=== PATIENT | female | born 1930 | race Caucasian/White ===

== ENCOUNTER 2018-08-28 09:10 | Inpatient (IN) | payer OTHER, MEDICAID ==
[~2018-08-28] VITALS: Ht 154.9 cm; Wt 68.2 kg
[~2018-08-28 09:10] MED LIST: ALLO100T PO; AMLO10TA12; ASPI81TA10; CARV6.2551; COLE625T10; HCTZ25T; ISOS120T4; VALS1TAB59
[2018-08-28] MEDS ORDERED: SODIUM CHLORIDE 0.9% 1,000 ML IV ONE (09:31)
[2018-08-28 10:07] LABS: Basophils # (auto) 0 uL; Basophils % (auto) 0.3 % (0.0-2.0); Eosinophils # (auto) 0.2 uL; Eosinophils % (auto) 1.8 % (0.0-7.0); Hematocrit 41.7 % (36.0-46.0); Hemoglobin 13.7 g/dL (12.2-16.2); Lymphocytes # (auto) 1.5 uL; Lymphocytes % (auto) 16.5 % (10.0-50.0); Mean Corpuscular Hgb Conc. 32.8 g/dL (32.0-36.0); Mean Corpuscular Volume 94.6 fL (80.0-100.0); Monocytes # (auto) 0.6 uL; Monocytes % (auto) 6.5 % (0.0-12.0); Neutrophils % (auto) 74.9 % (37.0-80.0); Platelet Count (auto) 182 10^3/uL (140-450); Red Blood Cells 4.41 10^6/uL (4.0-5.20); Red Cell Distribution Width 13.6 % (11.8-14.3); White Blood Cell 9.3 10^3/uL (4.4-10.8)
[2018-08-28 10:40] LABS: Alanine Aminotransferase 17 U/L (13-56); Albumin 3.3 g/dL (3.4-5.0); Alkaline Phosphatase 75 U/L (45-117); Anion Gap 4 (5-15); Aspartate Aminotransferase 12 U/L (15-37); Bilirubin, Total 0.9 mg/dL (0.2-1.0); Blood Urea Nitrogen 23 mg/dL (7-18); Calcium 8.7 mg/dL (8.5-10.1); Carbon Dioxide 27 mmol/L (21-32); Chloride 109 mmol/L (98-107); GFR African American 48 mL/min; GFR Non-African American 40 mL/min; Glucose 136 mg/dL (74-106); Magnesium 2.6 mg/dL (1.6-2.6); Potassium 3.4 mmol/L (3.5-5.1); Sodium 140 mmol/L (136-145); Total Protein 6.1 g/dL (6.4-8.2)
[2018-08-28] MEDS ORDERED: NITROGLYCERIN 0.4 MG SL TAB SL PRN (11:00)
[2018-08-28] MEDS ORDERED: LABETALOL HCL 5 MG/ML ML 20ML VIAL IV PRN (11:00)
[2018-08-28] MEDS ORDERED: LORazepam 0.5 MG TAB PO PRN (11:00)
[2018-08-28] MEDS ORDERED: DEXTROSE (50%) 50ML SYRG IV PRN (11:00)
[2018-08-28] MEDS ORDERED: TEMAZEPAM 15 MG CAP PO PRN (11:00)
[2018-08-28] MEDS ORDERED: LACTULOSE 20Gm/30ML SOLN PO PRN (11:00)
[2018-08-28] MEDS ORDERED: MORPHINE SULFATE 4 MG/ML SYR/VIAL IV PRN (11:00)
[2018-08-28] MEDS ORDERED: ENOXAPARIN SOD 30 MG/0.3 ML SYRINGE SC SCH (11:07)
[2018-08-28] MEDS: SODIUM CHLORIDE 0.9% 1,000 ML IV SCH ×2 (11:55→22:54)
[2018-08-28] MEDS: ACCU-CHEK COMFORT CURVE STRIP VI SCH ×2 (12:08→17:45)
[2018-08-28] MEDS ORDERED: LORazepam 2MG/ML-1ML VIAL IV PRN (15:45)
[2018-08-28 17:00] VITALS: BP 140/60
[2018-08-28 22:00] VITALS: BP 158/66
[2018-08-28 23:52] LABS: Urine Amorphous Crystal FEW /hpf (None Seen); Urine Bacteria FEW /hpf (None Seen); Urine Blood Negative /uL (Negative); Urine Mucus FEW (None Seen); Urine Specific Gravity 1.034 (1.001-1.035); Urine WBC 4 /hpf (0 - 5)
[2018-08-29 00:06] LABS: Alcohol, Urine < 3.0 mg/dL (0-5); Amphetamine Screen, Urine NEGATIVE (NEGATIVE); Barbiturate Scree,Urine NEGATIVE (NEGATIVE); Benzodiazephine Screen, Urine NEGATIVE (NEGATIVE); Cannabinoid Screen, Urine NEGATIVE (NEGATIVE); Cocaine Screen, Urine NEGATIVE (NEGATIVE); Opiate Scree,Urine NEGATIVE (NEGATIVE); Phencyclidine Screen, Urine NEGATIVE (NEGATIVE)
[2018-08-29 05:00] VITALS: BP 178/73
[2018-08-29] MEDS: ACCU-CHEK COMFORT CURVE STRIP VI SCH ×3 (05:05→12:08)
[2018-08-29 05:51] LABS: Albumin 2.8 g/dL (3.4-5.0); BUN/Creatinine Ratio 30.9; Bilirubin, Total 0.5 mg/dL (0.2-1.0); Potassium 3.3 mmol/L (3.5-5.1); Total Protein 5.3 g/dL (6.4-8.2)
[2018-08-29 09:13] VITALS: BP 144/57
[2018-08-29] MEDS: PANTOPRAZOLE 40 MG TAB PO SCH ×4 (10:00→11:38)
[2018-08-29] MEDS: ASPirin 81 mg TAB PO SCH ×4 (10:00→11:38)
[2018-08-29] MEDS: ENOXAPARIN SOD 40 MG/0.4 ML SYRINGE SC SCH ×3 (10:00→10:52)
[2018-08-29] MEDS: ACETAMINOPHEN 500 MG TAB PO PRN ×2 (10:44→11:38)
[2018-08-29] MEDS: SODIUM CHLORIDE 0.9% 1,000 ML IV SCH (11:50)
[2018-08-29] MEDS: ONDANSETRON HCL 4 MG/2 ML VIAL IV PRN ×3 (12:55→22:26)
[2018-08-29 15:00] VITALS: BP 212/85
[2018-08-29] MEDS ORDERED: amLODIPine BESYLATE 5 MG TAB PO ONE (15:45)
[2018-08-29] MEDS: hydrALAZINE HCL 25 MG TAB PO SCH ×2 (17:19→22:25)
[2018-08-29 17:20] VITALS: BP 199/75
[2018-08-29 20:05] VITALS: BP 160/75
[2018-08-29] MEDS ORDERED: CARVEDILOL 3.125 MG TAB PO SCH (22:00)
[2018-08-29] MEDS ORDERED: ATORVASTATIN 20 MG TAB PO SCH (22:00)
[2018-08-29] MEDS: LEVETIRACETAM 500 MG TAB PO SCH (22:24)
[2018-08-29] MEDS: CARVEDILOL 12.5 MG TAB PO SCH (22:24)
[2018-08-29] MEDS: QUEtiapine FUMARATE 25 MG TAB PO SCH (22:25)
[2018-08-30 05:04] VITALS: BP 158/71
[2018-08-30 06:59] LABS: Potassium 3.3 mmol/L (3.5-5.1)
[2018-08-30 07:03] LABS: BUN/Creatinine Ratio 15.9; Calcium 8.1 mg/dL (8.5-10.1)
[2018-08-30 07:41] VITALS: BP 148/72
[2018-08-30] MEDS ORDERED: POTASSIUM CHL 20 Meq TABLET PO ONE ×2 (08:00→11:30)
[2018-08-30] MEDS: LEVETIRACETAM 500 MG TAB PO SCH (09:24)
[2018-08-30] MEDS: CARVEDILOL 12.5 MG TAB PO SCH (09:24)
[2018-08-30] MEDS: ASPirin 81 mg TAB PO SCH (09:25)
[2018-08-30] MEDS: QUEtiapine FUMARATE 25 MG TAB PO SCH (09:25)
[2018-08-30] MEDS: PANTOPRAZOLE 40 MG TAB PO SCH (09:25)
[2018-08-30] MEDS: ENOXAPARIN SOD 40 MG/0.4 ML SYRINGE SC SCH (09:27)
[2018-08-30] MEDS ORDERED: amLODIPine BESYLATE 5 MG TAB PO SCH (10:00)
[2018-08-30 12:00] VITALS: BP 140/60
[2018-08-30] MEDS: hydrALAZINE HCL 25 MG TAB PO SCH (14:00)
[2018-08-30 16:36] VITALS: BP 126/56
[2018-08-30 21:00] VITALS: BP 134/63
[2018-08-30 21:08] VITALS: BP 134/63
[2018-08-31 11:09] LABS: Folate (Folic Acid) 12.75 ng/mL (5.38-24)
== END 2018-08-30 21:34 | disposition short-term general hospital (02) | DRG 70 ==
LOC: EDBD → ER 09:10 → EDBD 09:10 → OBSVTOIN 09:11 → EDUNIT# 09:11 → TELE 09:11 → INTOOBSV 09:11 → TELE-WESTW 13:26 → WEST WING 08-29 15:52
PROVIDERS: ADMIT Internal Medicine; ATTEND Internal Medicine
DX: G93.41 Metabolic encephalopathy (principal); N17.0 Acute kidney failure with tubular necrosis; E44.0 Moderate protein-calorie malnutrition; N39.0 Urinary tract infection, site not specified; R73.9 Hyperglycemia, unspecified; E87.6 Hypokalemia; E86.0 Dehydration; E78.5 Hyperlipidemia, unspecified; F17.200 Nicotine dependence, unspecified, uncomplicated; G93.89 Other specified disorders of brain; I10 Essential (primary) hypertension; I25.10 Atherosclerotic heart disease of native coronary artery without angina pectoris; I67.2 Cerebral atherosclerosis; I25.2 Old myocardial infarction; Z90.49 Acquired absence of other specified parts of digestive tract; Z79.82 Long term (current) use of aspirin; Z79.899 Other long term (current) drug therapy; Z82.49 Family history of ischemic heart disease and other diseases of the circulatory system; Z88.8 Allergy status to other drugs, medicaments and biological substances; Z86.73 Personal history of transient ischemic attack (TIA), and cerebral infarction without residual deficits; Z68.28 Body mass index [BMI] 28.0-28.9, adult
CPT/HCPCS: 36415; 70450; 71045; 80048; 80053; 80307; 80320; 81001; 82550; 82607; 82746; 82962; 83036; 83605; 83735; 84443; 84484; 85025; 85652; 87040; 87081; 93005; 94761; 96372; 96374; J2405